=== PATIENT | female | born 1985 | race African-American/Black ===

== ENCOUNTER 2018-12-23 12:15 | Emergency (ER) | payer OTHER ==
[~2018-12-23] VITALS: Ht 167.6 cm; Wt 89.8 kg
[2018-12-23] VITALS (7 sets, daily range): BP systolic 106–144; BP diastolic 47–87
[2018-12-23] MEDS ORDERED: KOSHER PRENATA1 EACH PO (12:23)
[2018-12-23] MEDS ORDERED: D5NS 1,000 ML IV ONE (12:30)
[2018-12-23] MEDS ORDERED: Morphine Sulfate 4mg/ml Inj (IV USE ONLY) IVP ONE ×3 (12:30→17:15)
--- NOTE | 2018-12-23 12:30 | NUR ---
ED Nurse Note: Patient walked in to ER with a friend from home due to LUQ abdominal pain since last night. pt aao x4 and ambulatory. skin clean and intact. cooperative and trying to remain calm but moaning and mild restless noted due to severe pain. no other acute distress noted at this time. pt reported she is 3 months . 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
--- NOTE | 2018-12-23 12:36 | Emergency Room Report ---
History of Present Illness General Chief Complaint: Abdominal Pain Source: Patient (Wai Tse MD) Present Illness HPI 33-year-old female history of gallstones, G5, P2 A 2, 12 weeks presents with right upper quadrant pain that started at night, achy in nature coming and going feels similar to previous gallbladder attacks, radiating to her right upper back no fevers no chills, positive nausea positive vomiting, no blood, no diarrhea severity is moderate intermittent patient presents for evaluation Reports her blood type is B+ (Wai Tse MD) Allergies: Coded Allergies: HYDROCODONE (Verified Allergy, Unknown, 12/23/18) Patient History Past Medical History: see triage record Last Menstrual Period: 09/29/18 Now: Yes Reviewed Nursing Documentation: PMH: Agreed; PSxH: Agreed (Wai Tse MD) Nursing Documentation-PMH Past Medical History: No Stated History (Wai Tse MD) Review of Systems All Other Systems: negative except mentioned in HPI (Wai Tse MD) Physical Exam Vital Signs Date Time Temp Pulse Resp B/P (MAP) Pulse Ox O2 Delivery O2 Flow Rate FiO2 12/23/18 12:20 98.2 100 18 144/87 (106) 96 Room Air Sp02 EP Interpretation: reviewed, normal General Appearance: well appearing, no apparent distress, alert Head: normocephalic, atraumatic Eyes: bilateral eye PERRL, bilateral eye EOMI ENT: uvula midline, moist mucus membranes Neck: supple, thyroid normal, supple/symm/no masses Respiratory: lungs clear, no respiratory distress, no retraction, no accessory muscle use Cardiovascular #1: normal peripheral pulses, regular rate, rhythm, no edema, no gallop, no murmur Gastrointestinal: soft, no guarding, no rebound, tenderness - ruq pain Musculoskeletal: normal inspection Neurologic: alert, oriented x3 Psychiatric: mood/affect normal Skin: no rash, warm/dry (Wai Tse MD) Medical Decision Making Diagnostic Impression: Primary Impression: Hyperemesis gravidarum Additional Impressions: Abdominal pain during Qualified Codes: O26.891 - Other specified related conditions, first trimester; R10.9 - Unspecified abdominal pain Cholecystitis ER Course 33-year-old female presents with right upper quadrant pain is 12 weeks on the differential includes cholecystitis cholelithiasis, functional abdominal pain Counseled patient states that she would prefer morphine understands the risks and benefits associated with it and adverse effects on her baby Patient given 4 mg of morphine, Kriss patient slowly improving We will obtain right upper quadrant ultrasound as well as OB ultrasound Patient signed out to Dr. Miranda Laboratory Tests Test 12/23/18 12:40 White Blood Count 15.0 K/UL (4.8-10.8) H Red Blood Count 3.78 M/UL (4.20-5.40) L Hemoglobin 11.3 G/DL (12.0-16.0) L Hematocrit 33.5 % (37.0-47.0) L Mean Corpuscular Volume 88 FL (80-99) Mean Corpuscular Hemoglobin 29.9 PG (27.0-31.0) Mean Corpuscular Hemoglobin Concent 33.8 G/DL (32.0-36.0) Red Cell Distribution Width 11.2 % (11.6-14.8) L Platelet Count 466 K/UL (150-450) H Mean Platelet Volume 5.1 FL (6.5-10.1) L Neutrophils (%) (Auto) 74.1 % (45.0-75.0) Lymphocytes (%) (Auto) 19.4 % (20.0-45.0) L Monocytes (%) (Auto) 5.7 % (1.0-10.0) Eosinophils (%) (Auto) 0.2 % (0.0-3.0) Basophils (%) (Auto) 0.7 % (0.0-2.0) Urine Color Pale yellow Urine Appearance Clear Urine pH 7 (4.5-8.0) Urine Specific [place] 1.010 (1.005-1.035) Urine Protein Negative (NEGATIVE) Urine Glucose (UA) Negative (NEGATIVE) Urine Ketones 2+ (NEGATIVE) H Urine Blood Negative (NEGATIVE) Urine Nitrite Negative (NEGATIVE) Urine Bilirubin Negative (NEGATIVE) Urine Urobilinogen Normal MG/DL (0.0-1.0) Urine Leukocyte Esterase Negative (NEGATIVE) Sodium Level 134 MMOL/L (136-145) L Potassium Level 3.4 MMOL/L (3.5-5.1) L Chloride Level 100 MMOL/L (98-107) Carbon Dioxide Level 21 MMOL/L (21-32) Anion Gap 13 mmol/L (5-15) Blood Urea Nitrogen 5 mg/dL (7-18) L Creatinine 0.7 MG/DL (0.55-1.30) Estimate Glomerular Filtration Rate > 60 mL/min (>60) Glucose Level 90 MG/DL (74-106) Calcium Level 9.1 MG/DL (8.5-10.1) Total Bilirubin 0.3 MG/DL (0.2-1.0) Aspartate Amino Transferase (AST) 12 U/L (15-37) L Alanine Aminotransferase (ALT) 17 U/L (12-78) Alkaline Phosphatase 65 U/L (46-116) Total Protein 8.2 G/DL (6.4-8.2) Albumin 3.4 G/DL (3.4-5.0) Globulin 4.8 g/dL Albumin/Globulin Ratio 0.7 (1.0-2.7) L Lipase 116 U/L (73-393) Human Chorionic Gonadotropin, Quant 89518 mIU/mL (1-6) H (Wai Tse MD) ER Course Assumed care of the patient at 1400 hrs. pending ultrasound. Ultrasound is now completed showing gallstones and sludge as well as pericholecystic fluid, gallbladder wall thickness of 0.7 cm and CBD of 0.9 cm consistent with acute cholecystitis. She has positive sonographic Savage's. Will discuss with transfer facility as we do not have INSPECTOR AUTOMATIC TYPEWRITER services at this facility. Ultrasound of the fetus was unremarkable with a stable heart rate of 147 bpm and no other abnormalities detected. (Elmer Miranda MD) EKG Diagnostic Results EKG Time: 12:41 EP Interpretation: NSR, rate 94, QTc 430, no acute ST elevations, normal axis (Wai Tse MD) Rhythm Strip Diag. Results Rhythm Strip Time: 12:36 EP Interpretation: yes Rate: 86 Rhythm: NSR, no PVC's, no ectopy (Wai Tse MD) Last Vital Signs Date Time Temp Pulse Resp B/P (MAP) Pulse Ox O2 Delivery O2 Flow Rate FiO2 12/23/18 12:20 98.2 100 18 144/87 (106) 96 Room Air (Wai Tse MD) Reevaluation Time: 21:36 Reevaluation Impression Patient has been accepted for transfer to [facility] under the care of Dr. Souza with Dr. Mcneill as the surgeon. She has received Zosyn, continues to receive IV fluids, has been n.p.o. for approximately 8 hours. She will be transferred for medical and possibly surgical management of cholecystitis. Patient remains in stable condition and suitable for transfer. (Elmer Miranda MD) Disposition: XFER SHT-TRM HOSP Condition: Stable Signed Out To: Ruben (Wai Tse MD) Additional Instructions: The patient was provided with discharge instructions, notified to follow-up with a primary care doctor and or specialist in the next 24-48 hours, and to return to the ED if they have worsening of their symptoms. Please note that this report is being documented using Fluencr technology. This can lead to erroneous entry secondary to incorrect interpretation by the dictating instrument. Wai Tse MD Dec 23, 2018 12:36 Elmer Miranda MD Dec 23, 2018 14:15
[2018-12-23 12:52] LABS: APPEARANCE,URINE CLEAR; BILIRUBIN, URINE NEGATIVE (NEGATIVE); COLOR,URINE PALE YELLOW; GLUCOSE, URINE (UA) NEGATIVE (NEGATIVE); KETONES,URINE 2+ (NEGATIVE); LEUKOCYTE ESTERASE ,URINE NEGATIVE (NEGATIVE); NITRITE,URINE NEGATIVE (NEGATIVE); PH,URINE 7 (4.5-8.0); PROTEIN,URINE NEGATIVE (NEGATIVE); UROBILINOGEN,URINE NORMAL MG/DL (0.0-1.0)
[2018-12-23 12:53] LABS: BASOPHILS % (AUTO) 0.7 % (0.0-2.0); EOSINOPHILS % (AUTO) 0.2 % (0.0-3.0); HEMATOCRIT 33.5 % (37.0-47.0); HEMOGLOBIN 11.3 G/DL (12.0-16.0); LYMPHOCYTES % (AUTO) 19.4 % (20.0-45.0); MEAN CORPUSCULAR VOLUME 88 FL (80-99); MONOCYTES % (AUTO) 5.7 % (1.0-10.0); NEUTROPHILS % (AUTO) 74.1 % (45.0-75.0); PLATELET COUNT 466 K/UL (150-450); RED BLOOD COUNT 3.78 M/UL (4.20-5.40); RED CELL DISTRIBUTION WIDTH 11.2 % (11.6-14.8)
[2018-12-23 13:03] LABS: ANION GAP 13 mmol/L (5-15); BLOOD UREA NITROGEN 5 mg/dL (7-18); CALCIUM 9.1 MG/DL (8.5-10.1); CARBON DIOXIDE 21 MMOL/L (21-32); CHLORIDE 100 MMOL/L (98-107); CREATININE 0.7 MG/DL (0.55-1.30); POTASSIUM 3.4 MMOL/L (3.5-5.1); SODIUM 134 MMOL/L (136-145)
[2018-12-23 13:07] LABS: ALANINE AMINOTRANSFERASE 17 U/L (12-78); ALBUMIN 3.4 G/DL (3.4-5.0); ALBUMIN/GLOBULIN RATIO 0.7 (1.0-2.7); ALKALINE PHOSPHATASE 65 U/L (46-116); ASPARTATE AMINO TRANSFERASE 12 U/L (15-37); BILIRUBIN,TOTAL 0.3 MG/DL (0.2-1.0)
[2018-12-23] MEDS: NS w/KCl 20mEq 1000ml 1,000 ML IV SCH ×8 (13:10→20:17)
--- NOTE | 2018-12-23 13:10 | NUR ---
ED Nurse Note: pt reported pain level 9/10. reported to ERMD.
[2018-12-23] MEDS ORDERED: Acetaminophen 500mg (ES) tab ORAL ONE (13:15)
--- NOTE | 2018-12-23 13:27 | NUR ---
ED Nurse Note: US initiated at bedside.
--- NOTE | 2018-12-23 14:19 | NUR ---
ED Nurse Note: US completed. RITAD made aware of the results.
--- NOTE | 2018-12-23 15:43 | Diagnostic Imaging Report ---
Indication: Abdominal pain Technique: Negrete-scale and duplex images of the upper abdomen were obtained Comparison: none Findings: Gallbladder demonstrates a gallstone. The gallbladder wall is thickened, measuring up to 8 mm in thickness. There is some pericholecystic fluid demonstrated. Sonographic Savage's sign is positive. Common bile duct measures 9 mm in diameter. No intrahepatic biliary ductal dilatation. Liver demonstrates normal echogenicity, no focal abnormality. Portal vein and hepatic veins are patent. Pancreas is unremarkable. Spleen is unremarkable. Left kidney measures 10.7 cm in length. Right kidney measures 12 cm length. Both kidneys demonstrate normal echogenicity. There is no hydronephrosis. No focal abnormality . Non-aneurysmal abdominal aorta . Impression: Cholelithiasis. Gallbladder wall thickening, pericholecystic fluid, and positive sonographic Savage's sign raises concern for acute cholecystitis Mildly dilated common bile duct. Downstream obstruction possible. Correlate with liver function tests, consider MRCP if clinically indicated This agrees with the preliminary interpretation provided overnight by [facility] teleradiology service.
--- NOTE | 2018-12-23 15:56 | NUR ---
ED Nurse Note: sandwich and juice provided per pt's request.
--- NOTE | 2018-12-23 16:21 | Diagnostic Imaging Report ---
Indication: Abdominal pain, patient Technique: Transabdominal images of the pelvis. Doppler interrogation of the bilateral ovaries Comparison: none Findings: Uterus measures 15.4 cm length by 6.4 cm AP. Within the endometrium, there is a gestational sac. This demonstrates a pole with a crown-rump length of 5.1 cm. This correlates with an estimated gestational age of 11 weeks 6 days. There is positive heart activity, heart rate 148 bpm no evidence of subchorionic hemorrhage demonstrated. The cervix is closed, endocervical canal measuring approximately 4.1 cm in length. Anterior fundal placenta. No free cul-de-sac fluid. Right ovary measures 3.1 cm length. The left ovary measures 3.6 cm length. Both ovaries demonstrate normal flow on Doppler imaging. No free cul-de-sac fluid Impression: 11 weeks 6 day, by crown-rump length measurement, single live intrauterine . No unusual features This agrees with the preliminary interpretation provided overnight by [facility] teleradiology service.
--- NOTE | 2018-12-23 17:00 | NUR ---
ED Nurse Note: per ERMD, pt will remain NPO.
[2018-12-23] MEDS ORDERED: Piperacillin/Tazobactam 3.375 GM in NS 110 ML IVPB ONE (18:15)
--- NOTE | 2018-12-23 19:06 | NUR ---
HAND-OFF: Report given to Doe Polo RN. waiting for the hospital to transfer pt. no orders at this moment.
--- NOTE | 2018-12-23 19:11 | NUR ---
ED Nurse Note: received patient from darin samaniego rn. patient resting in bed with nad. ao4. vss. iv intact and patent.
--- NOTE | 2018-12-23 20:33 | NUR ---
Olivia hill in EDM - 12/23/18 at 2034 by [facility] ED Nurse Note: reassesed blood pressure 107/53
--- NOTE | 2018-12-23 20:39 | NUR ---
ED Nurse Note: pt resting comfortably in bed with nad. ao4. vss. family at bedside. aware of pending transfer. remains npo
--- NOTE | 2018-12-23 23:48 | NUR ---
ED Nurse Note: report given to sharad arreaga of [facility]. patient to be admitted to [facility] under the care of md cliff. eta of transport [phone] [facility].
--- NOTE | 2018-12-24 00:38 | NUR ---
[facility] is here now to transport patient.
--- NOTE | 2018-12-24 00:47 | NUR ---
ED Nurse Note: report given to [facility]. pt stable for transfer. pt left via gurney with all belongings.
[2018-12-24 00:48] VITALS: BP 111/47
--- NOTE | 2018-12-24 11:45 | Cardiology Report ---
APPROVED REPORT EKG Measurement Heart [id number] Normal sinus rhythm Cannot rule out Anterior infarct, age undetermined Abnormal ECG
== END 2018-12-24 00:49 | disposition short-term general hospital (02) ==
LOC: EMR 12:31
DX: O21.0 Mild hyperemesis gravidarum (principal); O99.611 Diseases of the digestive system complicating pregnancy, first trimester; K81.0 Acute cholecystitis; R10.9 Unspecified abdominal pain; Z3A.12 12 weeks gestation of pregnancy
CPT/HCPCS: 36415; 76700; 76801; 76830; 80053; 81003; 83690; 84702; 85025; 86850; 86900; 86901; 93005; 96361; 96365; 96375; 96376; J2270; J2405; J2543; Z7502; 99284